=== PATIENT | female | born 1975 | race Two or more races ===

== ENCOUNTER 2023-10-17 14:04 | Outpatient (CLI) | payer OTHER | END 2023-10-17 14:21 | disposition home or self-care (01) | LOC: MAMO-SONO 14:04 | PROVIDERS: ATTEND Internal Medicine | DX: R92.8 Other abnormal and inconclusive findings on diagnostic imaging of breast (principal); Z98.890 Other specified postprocedural states; R53.83 Other fatigue; E55.9 Vitamin D deficiency, unspecified; E78.5 Hyperlipidemia, unspecified; Z12.11 Encounter for screening for malignant neoplasm of colon; R94.6 Abnormal results of thyroid function studies ==

== ENCOUNTER → 2024-03-20 | Outpatient (CLI) | payer OTHER | END | disposition home or self-care (01) | LOC: SONOGRAMA 09:42 | DX: N94.5 Secondary dysmenorrhea (principal); N92.4 Excessive bleeding in the premenopausal period ==

== ENCOUNTER 2024-11-12 07:19 | Outpatient (CLI) | payer OTHER | END 2024-11-12 07:29 | disposition home or self-care (01) | LOC: MAMO-SONO 07:19 | PROVIDERS: ATTEND Internal Medicine | DX: R92.8 Other abnormal and inconclusive findings on diagnostic imaging of breast (principal); Z98.890 Other specified postprocedural states; Z12.31 Encounter for screening mammogram for malignant neoplasm of breast ==